=== PATIENT | male | born 1995 | race Caucasian/White ===

== ENCOUNTER 2019-10-12 16:34 | Observation (INO) | payer OTHER ==
[2019-10-12] MEDS ORDERED: BUPIVACAINE 0.5% PF 10 ML VIAL ONE (16:50)
[2019-10-12] MEDS ORDERED: TETANUS & DIPHTHERIA TOX,ADULT 0.5 ML VIAL ONE (16:50)
--- NOTE | 2019-10-12 18:12 | RAD REPORT ---
EXAM DESCRIPTION: RAD - Hand Left 3 View - 10/12/2019 5:47 pm CLINICAL HISTORY: amputation COMPARISON: None. FINDINGS: Fracture of the third distal phalanx is present in the tuft and shaft. Multiple fracture p lanes are present. Soft tissue wound or soft tissue amputation is evident. This may be an open fractu re with little soft tissue evident over the tip of the tuft. No foreign body identified. No other fracture changes seen. IMPRESSION: Left third distal phalanx fracture with soft tissue wound or amputation.
--- NOTE | 2019-10-12 18:17 | EDPHYS ---
Physician Documentation [facility] Name: Rodrick Bowman Age: 24 yrs Sex: Male : 1995 Arrival Date: 10/12/2019 Time: 16:28 Bed 16 Private MD: ED Physician Dion Villalta HPI: 10/11 16:30 This 24 yrs old Male presents to ER via EMS with complaints of Finger Injury. jmm 16:30 Mechanism of injury: Crush injury:. Onset: The symptoms/episode began/occurred acutely, jmm just prior to arrival. Patient states he was loading a safe in the bed of a truck, when safe crushed his finger against the bed of the truck. Denies other injury. unsure of tetanus immunizations. . Historical: - Allergies: 16:28 No Known Allergies; aa5 - Home Meds: 16:28 Prilosec Oral [Active]; aa5 - PMHx: 16:28 Acid Reflux; aa5 - PSHx: 16:28 L foot; R foot; aa5 - Immunization history:: Last tetanus immunization: unknown. - Social history:: Smoking status: Patient denies any tobacco usage or history of. ROS: 16:30 Constitutional: Negative for fever, chills, and weight loss, Cardiovascular: Negative jm for chest pain, palpitations, and edema, Respiratory: Negative for shortness of breath, cough, wheezing, and pleuritic chest pain. 16:30 MS/extremity: Positive for injury or acute deformity. 16:30 All other systems are negative. Exam: 16:30 Constitutional: This is a well developed, well nourished patient who is awake, alert, jmm and in no acute distress. Head/Face: atraumatic. Eyes: EOMI, no conjunctival erythema appreciated ENT: Moist Mucus Membranes Neck: Trachea midline, Supple Chest/axilla: Normal chest wall appearance and motion. Cardiovascular: Regular rate and rhythm. No edema appreciated Respiratory: Normal respirations, no respiratory distress appreciated Abdomen/GI: Non distended, soft Back: Normal ROM 16:30 Musculoskeletal/extremity: partial amputation of the left 3rd finger noted, from appreciated to the dip, mild bleeding appreciated. 16:30 Skin: avulsion noted to the left 3rd finger. 16:30 Neuro: Orientation: is normal, Mentation: is normal, Memory: is normal. 16:30 Psych: Behavior/mood is pleasant, cooperative. Vital Signs: 16:28 BP 138 / 72; Pulse 98; Resp 18 S; Temp 98.7(O); Pulse Ox 98% on R/A; Pain 7/10; aa5 18:00 BP 133 / 90; Pulse 90; Resp 18; Pulse Ox 100% on R/A; vc 19:00 BP 126 / 82; Pulse 74; Resp 17; Pulse Ox 99% on R/A; vc MDM: 16:30 Patient medically screened. [facility] 18:14 Data reviewed: vital signs, nurses notes. ED course: I discussed the patient with Dr. sophie Irvin whom will take the patient to the OR tomorrorow morning. Recommended NPO after midnight. I discussed the patient with Dr. Gonzáles whom accepted admission. . 10/11 18:43 Order name: Basic Metabolic Panel; Complete Time: 19:37 [facility] 10/11 18:43 Order name: CBC without Diff; Complete Time: 19:37 [facility] 10/11 16:31 Order name: Hand Left 3 View XRAY; Complete Time: 18:18 [facility] 10/11 18:43 Order name: Protime (+INR); Complete Time: 19:37 [facility] 10/11 18:18 Order name: Misc. Order: wound care with wet to dry dressing; Complete Time: 19:02 [facility] 10/11 18:45 Order name: CONS Pharmacy Consult [facility] 10/11 18:47 Order name: CONS Pharmacy Consult [facility] 10/11 18:47 Order name: CONS Physician Consult [facility] 10/11 18:47 Order name: NPO EDFL Administered Medications: 16:45 Drug: Marcaine (0.5 %) 10 ml {Note: administered by PA. Adair} Volume: 10 ml; aa5 Route: Infiltration; 17:00 Follow up: Response: No adverse reaction; Pain is decreased aa5 17:00 Drug: Tetanus-Diphtheria Toxoid Adult 0.5 ml {Data Lead: INDOM. Exp: aa5 07/04/2021. Lot #: [id number]. } Route: IM; Site: left deltoid; 17:15 Follow up: Response: No adverse reaction aa5 19:37 Drug: Ancef 1 grams Route: IVPB; Site: right antecubital; vc 19:40 Follow up: IV Status: Completed infusion; IV Intake: 10ml vc Disposition: 10/12/19 18:16 Hospitalization ordered by Franklin Gonzáles for Observation. Preliminary diagnosis is Amputation of the Distal Phalanx. - Bed requested for Telemetry/MedSurg (observation). - Status is Observation. vc - Condition is Stable. - Problem is new. - Symptoms are unchanged. Addendum: 10/16/2019 21:13 Co-signature as Attending Physician, Dion Villalta MD. m h7 Signatures: Dispatcher [employer] EDMS Matilde Nguyen RN RN Saman Leger PA PA Zahra Bryan, RN RN aa5 Marilee Griggs RN RN vc Holmes, Maurice, MD MD mh7 Corrections: (The following items were deleted from the chart) 10/11 19:28 18:16 Hospitalization Ordered by Franklin Gonzáles MD for Observation. Preliminary dw diagnosis is Amputation of the Distal Phalanx. Bed requested for Telemetry/MedSurg (observation). Status is Observation. Condition is Stable. Problem is new. Symptoms are unchanged. [facility] 21:04 19:28 10/12/2019 18:16 Hospitalization Ordered by Franklin Gonzáles MD for Observation. vc Preliminary diagnosis is Amputation of the Distal Phalanx. Bed requested for Telemetry/MedSurg (observation). Status is Observation. Condition is Stable. Problem is new. Symptoms are unchanged. dw
--- NOTE | 2019-10-12 18:17 | ER ---
Nurse's Notes [facility] Name: Rodrick Bowman Age: 24 yrs Sex: Male : 1995 Arrival Date: 10/12/2019 Time: 16:28 Bed 16 Private MD: Diagnosis: Amputation of the Distal Phalanx Presentation: 10/11 16:28 Chief complaint: Patient states: "I work at [employer] and I was helping load a gun safe aa5 onto a [employer] truck and smashed my finger between the safe and the truck". Partial amputation noted to left middle finger. No active bleeding noted. 16:28 Coronavirus screen: Proceed with normal triage. Patient denies a cough. Patient denies aa5 shortness of breath or difficulty breathing. Patient denies measured and/or subjective temperature greater than 100.4F prior to today's visit. Patient denies travel on a cruise ship or to a country the [facility] currently lists as an affected area. Patient denies contact with known and/or suspected case of COVID-19. Ebola Screen: Patient negative for fever greater than or equal to 101.5 degrees Fahrenheit, and additional compatible Ebola Virus Disease symptoms. Initial Sepsis Screen: Does the patient meet any 2 criteria? No. Patient's initial sepsis screen is negative. Does the patient have a suspected source of infection? No. Patient's initial sepsis screen is negative. Risk Assessment: Do you want to hurt yourself or someone else? Patient reports no desire to harm self or others. Onset of symptoms was October 12, 2019. 16:28 Acuity: MO 3 aa5 16:28 Method Of Arrival: EMS: [facility] aa5 Triage Assessment: 19:00 General: Appears in no apparent distress. comfortable, Behavior is calm, cooperative, vc appropriate for age. Injury Description: Crush injury sustained to left middle fingernail. Historical: - Allergies: 16:28 No Known Allergies; aa5 - Home Meds: 16:28 Prilosec Oral [Active]; aa5 - PMHx: 16:28 Acid Reflux; aa5 - PSHx: 16:28 L foot; R foot; aa5 - Immunization history:: Last tetanus immunization: unknown. - Social history:: Smoking status: Patient denies any tobacco usage or history of. Screenin:40 Abuse screen: Denies threats or abuse. Nutritional screening: No deficits noted. aa5 Tuberculosis screening: No symptoms or risk factors identified. Fall Risk None identified. Assessment: 16:30 General: Appears uncomfortable, Behavior is calm, cooperative. Pain: Complains of pain aa5 in distal phalanx of left middle finger Pain currently is 7 out of 10 on a pain scale. Quality of pain is described as throbbing, Is continuous. Neuro: Level of Consciousness is awake, alert, obeys commands, Oriented to person, place, time, situation. Cardiovascular: Patient's skin is warm and dry. Respiratory: Airway is patent Respiratory effort is even, unlabored, Respiratory pattern is regular, symmetrical. GI: No signs and/or symptoms were reported involving the gastrointestinal system. : No signs and/or symptoms were reported regarding the genitourinary system. EENT: No signs and/or symptoms were reported regarding the EENT system. Derm: Skin is pink, warm \\T\\ dry. Musculoskeletal: Range of motion: intact in all extremities, amputation noted to tip of left middle finger, no active bleeding noted. 17:00 Reassessment: Patient is alert, oriented x 3, equal unlabored respirations, skin aa5 warm/dry/pink. Patient denies pain at this time. Patient states feeling better. 18:00 Reassessment: Patient appears in no apparent distress at this time. Patient and/or vc family updated on plan of care and expected duration. Pain level reassessed. Patient is alert, oriented x 3, equal unlabored respirations, skin warm/dry/pink. Patient denies pain at this time. 19:00 Reassessment: Patient appears in no apparent distress at this time. Patient and/or vc family updated on plan of care and expected duration. Pain level reassessed. Patient is alert, oriented x 3, equal unlabored respirations, skin warm/dry/pink. Patient denies pain at this time. Patient states feeling better. Patient states symptoms have improved. 19:47 Reassessment: Patient appears in no apparent distress at this time. Patient and/or vc family updated on plan of care and expected duration. Pain level reassessed. Patient is alert, oriented x 3, equal unlabored respirations, skin warm/dry/pink. Patient denies pain at this time. Vital Signs: 16:28 BP 138 / 72; Pulse 98; Resp 18 S; Temp 98.7(O); Pulse Ox 98% on R/A; Pain 7/10; aa5 18:00 BP 133 / 90; Pulse 90; Resp 18; Pulse Ox 100% on R/A; vc 19:00 BP 126 / 82; Pulse 74; Resp 17; Pulse Ox 99% on R/A; vc ED Course: 16:28 Patient arrived in ED. aa5 16:28 Zahra Iniguez RN is Primary Nurse. aa5 16:28 Arm band placed on Patient placed in an exam room, on a stretcher. aa5 16:28 Patient has correct armband on for positive identification. Bed in low position. Call aa5 light in reach. Side rails up X2. Pulse ox on. NIBP on. 16:29 Saman Hughes PA is PHCP. jmm 16:29 Dion Villalta MD is Attending Physician. jmm 17:11 Triage completed. aa5 17:47 Hand Left 3 View XRAY In Process Unspecified. EDMS 17:55 Report given to AYSHA Hunt. aa5 18:16 Franklin Gonzáles MD is Hospitalizing Provider. jmm 18:51 Wound care: to laceration Patient tolerated well. cleaned wound and applied wet to dry kj1 dressing pt tolerated. 19:46 No provider procedures requiring assistance completed. Patient admitted, IV remains in vc place. Administered Medications: 16:45 Drug: Marcaine (0.5 %) 10 ml {Note: administered by JARRET Borrero.} Volume: 10 ml; aa5 Route: Infiltration; 17:00 Follow up: Response: No adverse reaction; Pain is decreased aa5 17:00 Drug: Tetanus-Diphtheria Toxoid Adult 0.5 ml {[place]: [email or web address]. Exp: aa5 07/04/2021. Lot #: [id number]. } Route: IM; Site: left deltoid; 17:15 Follow up: Response: No adverse reaction aa5 19:37 Drug: Ancef 1 grams Route: IVPB; Site: right antecubital; vc 19:40 Follow up: IV Status: Completed infusion; IV Intake: 10ml vc Intake: 19:40 IV: 10ml; Total: 10ml. vc Outcome: 18:16 Decision to Hospitalize by Provider. jmm 19:57 Condition: good vc 21:02 Admitted to Med/surg accompanied by tech, via stretcher, room 210, Report called to vc Herminia RN 21:02 Instructed on the need for admit. 21:04 Patient left the ED. Signatures: Dispatcher [employer] EDMS Saman Hughes PA PA jmm Calderon, Audri, RN RN [email or web address] Essence Maria [email or web address] Marilee Griggs RN RN
--- NOTE | 2019-10-12 18:32 | P.HP ---
Certification for Inpatient Patient admitted to: Observation With expected LOS: <2 Midnights Practitioner: I am a practitioner with admitting privileges, knowledge of patient current condition, hospital course, and medical plan of care. Services: Services provided to patient in accordance with Admission requirements found in Title 42 Section 412.3 of the Code of Federal Regulations Patient History Date of Service: 10/12/19 Reason for admission: Crush injury left finger History of Present Illness: Patient is 24 years of age was working at [employer] distended lift a heavy safe as dropped on is finger is altered and crush injury of his left 3rd finger of his hand very comfortable no other medical issues is not take any medications - Past Medical/Surgical History -: Guard Review of Systems 10-point ROS is otherwise unremarkable Physical Examination - Vital Signs Temperature: 98.7 F Blood Pressure: 138/72 Pulse: 98 Respirations: 18 Pulse Ox (%): 98 - Physical Exam General: Alert, In no apparent distress, Oriented x3 HEENT: Atraumatic Neck: Supple Respiratory: Clear to auscultation bilaterally, Diminished Cardiovascular: Regular rate/rhythm Gastrointestinal: Normal bowel sounds, Soft and benign Musculoskeletal: Other (Patient has crush injury of his distal tip of the left 3rd finger) Neurological: Normal gait, Normal speech Assessment and Plan - Problems (Diagnosis) (1) Crush injury of hand Current Visit: Yes Status: Acute Plan: Patient is 24 years of age admitted with a crush injury of the distal tip of the left 3rd finger he is currently doing well plastic said he has been console did he will be admitted to the floor for do bride meant tomorrow O start on some IV fluids antibiotic also ordered some lab order Qualifiers: Encounter type: initial encounter Laterality: left Qualified Code(s): S67.22XA - Crushing injury of left hand, initial encounter Discharge Plan: Home Plan to discharge in: 24 Hours - Advance Directives Does patient have a Living Will: No Does patient have a Durable POA for Healthcare: No
[2019-10-12] MEDS ORDERED: Pharmacy Consult 1 EA XX PRN (18:42)
[2019-10-12] MEDS ORDERED: ACETAMINOPHEN 500 MG TAB PO PRN (18:44)
[2019-10-12] MEDS ORDERED: ONDANSETRON 4 MG/2 ML VIAL IV PRN (18:44)
[2019-10-12] MEDS: NA CHLORIDE 0.9% 1,000 ML IV SCH (19:00)
[2019-10-12 19:23] LABS: MPV 9.1 fL (7.6-11.3); RBC Red Blood Cell Count 5.25 M/uL (4.33-5.43)
[2019-10-12 19:24] LABS: Protime INR 1.08
[2019-10-12] MEDS ORDERED: CEFAZOLIN/SWI 1gm 1 GM/10 ML SYR ONE (19:31)
[2019-10-12 19:35] LABS: BUN Blood Urea Nitrogen 15 mg/dL (7-18); Bicarbonate 26 mmol/L (21-32); Glucose Level 95 mg/dL (74-106); Potassium 3.7 mmol/L (3.5-5.1); Sodium Level 138 mmol/L (136-145)
[2019-10-12] MEDS: CEFTRIAXONE/SWI 1gm 1 GM/10 ML SYR IVP SCH (22:31)
[2019-10-13 04:21] VITALS: BMI 31.9
[2019-10-13] MEDS: MORPHINE 2 MG/ML SYR IV PRN ×2 (06:10→10:24)
[2019-10-13] MEDS ORDERED: VANCOMYCIN 1.75 GM in NA CHLORIDE 0.9% 500 ML IVPB SCH ×2 (07:00→08:00)
[2019-10-13] MEDS: CEFTRIAXONE/SWI 1gm 1 GM/10 ML SYR IVP SCH (07:39)
[2019-10-13] MEDS: NA CHLORIDE 0.9% 1,000 ML IV SCH (11:40)
[2019-10-13] MEDS ORDERED: CEFAZOLIN/SWI 1gm 1 GM/10 ML SYR ONE (12:53)
[2019-10-13] MEDS ORDERED: Ringers Lactate 1,000 ML IV ONE (13:05)
[2019-10-13] MEDS ORDERED: FENTANYL CITR 100 MCG/2 ML ONE ×2 (13:08→13:34)
[2019-10-13] MEDS ORDERED: propofoL 200 MG/20 ML VIAL IV ONE (13:08)
[2019-10-13] MEDS ORDERED: LIDOCAINE 2% MPF 5 ML VIAL ONE (13:08)
[2019-10-13] MEDS ORDERED: ONDANSETRON 4 MG/2 ML VIAL ONE ×2 (13:23→14:09)
[2019-10-13] MEDS ORDERED: KETOROLAC 30 MG/ML INJ ONE (13:23)
[2019-10-13] MEDS ORDERED: dexAMETHasone 10 MG/ML VIAL ONE (13:23)
[2019-10-13] MEDS ORDERED: Mastisol Adhesive Liq ONE (13:42)
[2019-10-13] MEDS: HYDROMORPHONE HCL 1 MG/ML INJ ONE ×4 (14:04→14:25)
--- NOTE | 2019-10-13 14:09 | P.PN ---
Subjective Date of Service: 10/13/19 Chief Complaint: Crush injury left finger Subjective: Other Physical Examination - Vital Signs Temperature: 97.2 F Blood Pressure: 123/69 Pulse: 59 Respirations: 16 Pulse Ox (%): 98 - Physical Exam General: Alert
[2019-10-13 14:41] VITALS: O2SAT 98
--- NOTE | 2019-10-13 14:48 | OP ---
Surgeon: Emre Irvin MD Curriculum Counselor: Hernan. Preoperative Diagnosis: Tip amputation of left index finger. Postoperative Diagnosis: Tip amputation of left index finger. Procedure Performed: Debridement of skin and subcu tissue, bone flap closure, skin graft, splint. Anesthesia: General. Description Of Procedure: After induction of general anesthesia, left hand was prepped with Betadine scrub and Betadine paint. Dry sterile drapes applied in usual manner. The arm was elevated, exsanguinated with Esmarch, tourniquet inflated to 250 mmHg. Hand placed on the [place] table. A transverse incision was made across the nail bed at the end of the nail bed tissue was avulsed distally. The proximal half was removed. The bone cutter was used to cut the bone. The wound was then jet lavaged, irrigated with 3 L of dilute Betadine solution. A V-Y flap was outlined from the radial surface, advanced and sewn in place. A defect remained about 1 x 1/2 cm. The skin was harvested from the wrist. Ellipse incision made with a 10 blade, full-thickness excised, and then tourniquet released. Electrocautery was used for hemostasis. Wound closed with interrupted 4-0 PDS running subcuticular. Dressings consisted of 2-inch Faustina and Steri-Strips. Skin was then sewn in place with a simple sutures of 4-0 Prolene and the flap was closed with 4-0 Prolene. Dressed with Xeroform, 2-inch Faustina, and splint holding the PIP deep in extension. The patient tolerated procedure well and returned to recovery. KIMBERLY/BRAD Voice ID: [id number] Report ID: [id number] JANET
[2019-10-13 15:03] VITALS: BP 138/80; TEMP 97.2
--- NOTE | 2019-10-13 15:43 | P.DS ---
Admission Date: 10/12/19 Discharge Date: 10/13/19 Disposition: ROUTINE DISCHARGE Discharge Condition: GOOD Reason for Admission: Crush injury left finger Brief History of Present Illness: 24 years of age was working at [employer] distended lift a heavy safe as dropped on is finger is altered and crush injury of his left 3rd finger of his hand very comfortable no other medical issues is not take any medications Hospital Course: He was admitted and was monitored closely. Pain was controlled well and antibiotic was started. Plastic surgery was consulted. He underwent Debridement of skin and subcutaneous tissue, bone flap closure, skin graft, splint placed Patient tolerated the procedure well and is being discharged home today in a stable condition with advice to follow up with PCP in 1 week and also with past surgery in 1-2 weeks Vital Signs/Physical Exam: Temp Pulse Resp BP Pulse Ox 97.2 F 70 16 138/80 98 10/13/19 15:01 10/13/19 15:01 10/13/19 15:01 10/13/19 15:01 10/13/19 15:01 General: Alert, In no apparent distress HEENT: Atraumatic, Normocephalic Neck: Supple, 2+ carotid pulse no bruit Respiratory: Clear to auscultation bilaterally, Normal air movement Cardiovascular: Normal pulses, Regular rate/rhythm, Normal S1 S2 Capillary refill: <2 Seconds Gastrointestinal: Soft and benign, W/out hepatosplenomegaly Musculoskeletal: Other (Splint on left finger) Integumentary: No rashes Neurological: Normal speech, Normal strength at 5/5 x4 extr Lymphatics: No axilla or inguinal lymphadenopathy Rectal: Deferred Laboratory Data at Discharge: WBC 6.5 K/uL (4.3-10.9) 10/12/19 19:10 Hgb 15.9 g/dL (13.6-17.9) 10/12/19 19:10 Hct 47.0 % (39.6-49.0) 10/12/19 19:10 Plt Count 183 K/uL (152-406) 10/12/19 19:10 PT 12.7 SECONDS (9.5-12.5) H 10/12/19 19:10 INR 1.08 10/12/19 19:10 Sodium 138 mmol/L (136-145) 10/12/19 19:10 Potassium 3.7 mmol/L (3.5-5.1) 10/12/19 19:10 BUN 15 mg/dL (7-18) 10/12/19 19:10 Creatinine 0.78 mg/dL (0.55-1.3) 10/12/19 19:10 Glucose 95 mg/dL (74-106) 10/12/19 19:10 Home Medications: Cephalexin [Keflex] 500 mg PO Q6HR #20 cap 10/13/19 Famotidine 20 mg PO BID 10 Days tablet 10/13/19 Ibuprofen [Motrin] 600 mg PO TID PRN #20 tab 10/13/19 Multivitamin 1 each PO DAILY 10/13/19 Omeprazole [Prilosec] 40 mg PO DAILY 10/13/19 New Medications: Famotidine 20 mg PO BID 10 Days tablet Cephalexin [Keflex] 500 mg PO Q6HR #20 cap Ibuprofen [Motrin] 600 mg PO TID PRN #20 tab PRN Reason: Pain Scale 8-10 (Severe) Diet: Regular Followup: Emre Irvin MD [ACTIVE - CAN ADMIT] -
== END 2019-10-13 17:26 | disposition home or self-care (01) ==
LOC: ER 16:34 → SUPCPDRO 16:34 → ERHOLD 18:51 → 2ND 20:00
PROVIDERS: ADMIT Internal Medicine Sleep Medicine; ATTEND Family Medicine
PROC: 0HXGXZZ Transfer Left Hand Skin, External Approach (ICD-10-PCS; 2019-10-13)
PROC: 0PBV0ZZ Excision of Left Finger Phalanx, Open Approach (ICD-10-PCS; principal; 2019-10-13 14:00)
DX: S68.123A Partial traumatic metacarpophalangeal amputation of left middle finger, initial encounter (principal); W20.8XXA Other cause of strike by thrown, projected or falling object, initial encounter; Z23 Encounter for immunization; Z20.828 Contact with and (suspected) exposure to other viral communicable diseases
CPT/HCPCS: 80048; 36415; 85610; 88304; 88311; 85027; 73130; 90471; 90714; 96374; 99285; 14040; U0002; J2704; J3010 ×2; J1100; J2270 ×2; J1170 ×2; J0690 ×2; J0696 ×2; G0378 ×4; J7120; J7040; J7030; J2405 ×2